=== PATIENT | male | born 1965 | race Caucasian/White ===

== ENCOUNTER 2021-01-03 11:08 | Emergency (ER) | payer BC, SELFPAY ==
--- NOTE | 2021-01-03 11:18 | [facility].EDGENADL ---
ED Disposition Clinical Impression: Epistaxis Disposition: Home, Self-Care Condition on Discharge: Good Instructions: DI for Nosebleed Additional Instructions: Afrin as needed for nosebleeds. Return to the emergency department for nosebleeds that will not stop bleeding after holding 30 minutes of continuous pressure. Referrals: Marcio Lewis MD [Primary Care Provider] - 3 days Time of Disposition: 12:16 - Critical Care Critical Care Time: No Attestation: On 01/03/21, the high probability of a clinically significant, sudden or life threatening deterioration of the following system(s) required my full and direct attention, intervention and personal management. The time I documented below is in addition to time spent performing reported procedures but includes the following listed in this critical care notation. Medical Decision Making - Medical Records Medical records reviewed: Yes: I reviewed the patient's medical records. - Michele Inquiry Pt receiving controlled substance: No Vital Signs: 01/03/21 11:23 Temperature 98.2 F Temperature Source Oral Pulse Rate [Left] 88 Respiratory Rate 18 Blood Pressure [Right Arm] 124/80 Blood Pressure Mean [Right Arm] 94 Blood Pressure Source [Right Arm] Automatic Cuff Blood Pressure Position [Right Arm] Sitting 02 Sat by Pulse Oximetry 96 Oxygen Delivery Method Room Air Orders (Tests/Meds): ED MEDICATIONS Discontinued Medications Generic Name Dose Route Start Last Admin Trade Name Laura PRN Reason Stop Dose Admin Oxymetazoline HCl 1 ml 01/03/21 11:24 01/03/21 11:32 Oxymetazoline Nasal [place] 0.05% 15ml NS 01/03/21 11:25 2 spray ONCE ONE Administration Medical Decision Narrative: 55yo M evaluated for epistaxis. Patient is in no acute distress on initial evaluation. Patient is provided 2 sprays of Afrin in his nose is repacked. 30 minutes later, the patient's nosebleed has stopped. He is able to breathe clearly through both sides of his nose. He remains in no acute distress and is appropriate and stable for discharge home. General Adult HPI - General Stated complaint: nose bleed Time Seen by Provider: 01/03/21 11:18 Mode of Arrival: Ambulatory - History of Present Illness HPI narrative: 55yo M with past medical history significant for nosebleeds presents to the emergency department secondary to nosebleed. Patient reports event has been ongoing for approximately 40 minutes. Does not take blood thinner. Denies any trauma to his nose. - Related Data Allergies Allergy/AdvReac Type Severity Reaction Status Date / Time No Known Allergies Allergy Verified 01/03/21 11:30 [facility] History - Hepatitis A Screen Drug use history?: No Attestation statement:: This patient has been screened for Hepatitis A risk factors. I have reviewed the patient's past medical history: Yes ROS Obtained: Yes All systems reviewed & no additional complaints Physical Exam - General General appearance: alert, in no apparent distress - Head Head exam: atraumatic, normocephalic, normal inspection - Eye Eye exam: Present: normal appearance, PERRL, EOMI - ENT ENT exam: Present: other (Packing to left nare with strikethrough) - Neck Neck exam: Present: normal inspection, full ROM, trachea midline. Absent: meningismus, lymphadenopathy - Respiratory Respiratory exam: Absent: respiratory distress - Cardiovascular Cardiovascular exam: Present: regular rate, normal rhythm - Abdominal Exam Abdominal exam: Present: soft. Absent: distention - Neurological Exam Neurological exam: Present: alert, oriented X3 - Psychiatric Psychiatric exam: Present: normal affect, normal mood - Skin Skin exam: Present: warm, dry, intact, normal color
[2021-01-03 11:23] VITALS: BP 124/80; PULSE 88; RESP 18; TEMP 36.8; O2SAT 96; BMI 34.9
[2021-01-03 12:22] VITALS: BP 123/90; PULSE 88; RESP 16; TEMP 36.7; O2SAT 99
== END 2021-01-03 12:24 | disposition home or self-care (01) ==
PROVIDERS: Emergency Provider Family Medicine; PCP Internal Medicine
DX: R04.0 Epistaxis (principal)
CPT/HCPCS: 99281